=== PATIENT | female | born 1975 | race Caucasian/White ===

== ENCOUNTER 2016-12-18 16:37 | Emergency (ER) | payer BC ==
--- NOTE | 2016-12-18 17:07 | ED Physician Documentation ---
Headache - HISTORIAN Historian: patient - HPI Chief Complaint: Headache Additional Information: has history og migraines, awakened yesterday and today. takes imitrex at home, her PCP sent her here for a CT scan. Onset: days ago Timing: abrupt, still present New Gradual Onset: No Exposure To: none Severity: moderate Quality: similar to previous, tightness Associated Symptoms: nausea, vomiting Preceding Symptoms: denies: visual disturbance Exacerbated By: light, noise Further Comments: no Last known Well Code/Unknown Code: Unknown - ROS NEURO/PSYCH: denies: confusion, anxiety EYES/ENT: denies: sore throat, difficulty swallowing CVS/RESP: none GI/: denies: abdominal pain MS/SKIN/LYMPH: denies: muscle aches all systems neg except as marked: Yes - PAST HX Medical History: migraines Allergies/Adverse Reactions: Allergies Allergy/AdvReac Type Severity Reaction Status Date / Time clarithromycin [From Biaxin] Allergy Severe Vomiting Verified 12/18/16 16:52 Home Medications: Ambulatory Orders Medication Instructions Recorded Albuterol Sulfate [Proair HFA] 2 inh INH QID PRN 12/18/16 Pnv with Ca,No.72/Iron/FA [Pnv 1 tab PO DAILY 12/18/16 Plus Multivit Tab] Promethazine HCl 12.5 mg PO Q6 PRN 12/18/16 Sertraline HCl [Sertraline HCl] 25 mg PO DAILY 12/18/16 Sumatriptan Succinate [Imitrex] 50 mg PO TID PRN 12/18/16 - SOCIAL HX Smoking History: non-smoker Alcohol Use: none Drug Use: none - Family HX Family History: none - VITAL SIGNS Vital Signs: Vital Signs Temp Pulse Resp BP Pulse Ox 98.7 F 81 18 139/89 100 12/18/16 16:55 12/18/16 16:55 12/18/16 16:55 12/18/16 16:55 12/18/16 16:55 - REVIEWED ASSESSMENTS Nursing Assessment Reviewed: Yes Vitals Reviewed: Yes Progress - Results/Orders Results/Orders: offered her a para spinal muscle injection , explained , or cocktail of 3 systemic meds for migraine and she chose paraspinal. - Progress Progress: pain nearly gone after 5 minutes after paraspinal muscle injection, still with some nausea ED Results Lab/Radiology - Radiology Radiology Impressions: CT scan NAD - Orders Orders: ED Orders Category Date Time Status CT BRAIN W/O CONTRAST Stat Exams 12/18/16 17:04 Completed Bupivacaine HCl/Pf [Marcaine 0.5%] Med 12/18/16 18:14 Discontinued 10 mg IJ NOW ONE Bupivacaine HCl/Pf [Marcaine 0.5%] Med 12/18/16 18:14 Discontinued 50 mg IV .STK-MED ONE Ondansetron HCl Rapdis [Zofran Odt] Med 12/18/16 18:35 Once 4 mg PO NOW ONE Headache Physical Exam - EXAM General Appearance: no acute distress, alert EENT: no facial swelling, photophobia, pharynx nml Neck: normal inspection Respiratory: no resp distress Abdomen: non-tender Skin: color nml Extremitites: non-tender - NEURO/PSYCH Higher Functions: alert, oriented x3, nml speech, mood/affect nml Cranial: nml as tested, no evidence of acute CVA Sensorimotor: motor nml, sensation nml Discharge Clincal Impression: Migraine Qualifiers: Migraine type: unspecified Status migrainosus presence: without status migrainosus Intractability: intractable Qualified Code(s): G43.919 - Migraine, unspecified, intractable, without status migrainosus Home Medications: Ambulatory Orders Albuterol Sulfate [Proair HFA] 2 inh INH QID PRN 12/18/16 Pnv with Ca,No.72/Iron/FA [Pnv Plus Multivit Tab] 1 tab PO DAILY Promethazine HCl 12.5 mg PO Q6 PRN 12/18/16 Sertraline HCl [Sertraline HCl] 25 mg PO DAILY 12/18/16 Sumatriptan Succinate [Imitrex] 50 mg PO TID PRN 12/18/16 Condition: Good Disposition: 01 HOME, SELF-CARE Decision to Admit: NO Date of Decison to Admit: 12/18/16 Decision Time: 18:41
--- NOTE | 2016-12-18 18:12 | Diagnostic Imaging Report ---
[facility] [id number] [facility] [address] [place], [place]. [address] Report Submission Date: December 18, 2016 5:47:48 PM CDT Patient Study Name: JAKI PASCUAL Date: December 18, 2016 5:28:32 PM CDT Modality Type: CT\SR Gender: F Description: CT BRAIN W/O CONTRAST : 73 Institution: [facility] Physician: EDGARDO MARVIN CT brain without IV contrast Clinical history: Severe headache since early this morning Radiation dose DLP 750 No visible intracranial bleed, acute infarct, midline shift or hydrocephalus. No visible skull fracture. No visible mass lesions. Mastoid air cells and visible sinuses are clear. Impression: Normal CT brain without IV contrast Electronically signed on December 18, 2016 5:47:48 PM CDT by: Simon VIVEROS
[2016-12-18] MEDS ORDERED: BUPIVACAINE HCL/PF 5 MG/ML 10ML VIAL IV ONE (18:14)
[2016-12-18] MEDS ORDERED: BUPIVACAINE HCL/PF 5 MG/ML 10ML VIAL IJ ONE (18:14)
[2016-12-18] MEDS ORDERED: ONDANSETRON HCL 4 MG TAB.RAPDIS PO ONE (18:35)
[2016-12-18 18:56] VITALS: BP 119/71
== END 2016-12-18 18:55 | disposition home or self-care (01) ==
LOC: ED 16:37
DX: G43.919 Migraine, unspecified, intractable, without status migrainosus (principal)
CPT/HCPCS: 70450; J3490; 96374; 99283